=== PATIENT | female | born 1960 | race Caucasian/White ===

== ENCOUNTER 2016-08-14 18:28 | Emergency (ER) | payer BC ==
--- NOTE | 2016-08-14 19:24 | UC ---
Neck Pain HPI - HPI Summary HPI Summary: granddaughter hit her chin hyperextending her neck a few hours a go has tight muscle pain across the upper back and shoulders - History of Current Complaint Stated Complaint: neck pain Time Seen by Provider: 08/14/16 19:05 Hx Obtained From: Patient ?: No Onset/Duration Of Injury/Symptoms: Hours Mechanism Of Injury: Blunt Trauma Timing: Constant Onset/Duration: Sudden Onset, Lasting Hours, Still Present Severity: Mild Pain Intensity: 4 - no bone tenderness all muscular Pain Scale Used: 0-10 Numeric Location: Discrete At: - muscles in upper back Character: Aching, Stiff, Spasmotic Aggravating Factors: Nothing Alleviating Factors: Nothing Associated Signs & Symptoms: Positive: Negative Related History: Previous Neck Injury - 13 years ago muscular injury - Allergies/Home Medications Allergies/Adverse Reactions: Allergies Allergy/AdvReac Type Severity Reaction Status Date / Time Adhesive Tape Allergy Rash Verified 05/12/14 11:40 Latex Allergy Rash Verified 05/12/14 11:40 PMH/Surg Hx/FS Hx/Imm Hx Previously Healthy: No Cardiovascular History Of: Denies: Cardiac Disorders Psychological History Of: Reports: Anxiety - PRN XANAX - Surgical History Surgical History: Yes Surgery Procedure, Year, and Place: DENTAL SURGERY- 1 MONTH AGO. [id number]. HYSTERECTOMY. LEFT LABRUM REPAIR AND ROTATOR CUFF REPAIR-5 YEARS AGO - Family History Known Family History: Positive: None - Social History Occupation: Employed Full-time Lives: With Family Alcohol Use: Occasionally Substance Use Type: None Smoking Status (MU): Light Every Day Tobacco Smoker Amount Used/How Often: SOCIALLY When Did the Patient Quit Smoking/Using Tobacco: 2013 Review Of Systems Constitutional: Positive: Negative Skin: Positive: Negative Eyes: Positive: Negative ENT: Positive: Negative Respiratory: Positive: Negative Cardiovascular: Positive: Negative Gastrointestinal: Positive: Negative Genitourinary: Positive: Negative Musculoskeletal: Positive: Myalgia - upper back Neurological: Positive: Negative Psychological: Positive: Negative All Other Systems Reviewed And Are Negative: Yes Physical Exam Triage Information Reviewed: Yes Appearance: Well-Appearing, No Pain Distress, Well-Nourished Vital Signs Reviewed: Yes Eye Exam: Normal Eyes: Positive: Conjunctiva Clear ENT Exam: Normal ENT: Positive: Normal ENT inspection, Pharynx normal, TMs normal. Negative: Nasal congestion, Nasal drainage, Tonsillar swelling, Tonsillar exudate, Trismus , Muffled/hoarse voice Dental Exam: Normal Neck exam: Normal Neck: Positive: Supple, Nontender, No Lymphadenopathy Respiratory Exam: Normal Respiratory: Positive: Chest non-tender, Lungs clear, Normal breath sounds, No respiratory distress, No accessory muscle use Cardiovascular Exam: Normal Cardiovascular: Positive: RRR, No Murmur, Pulses Normal, Brisk Capillary Refill Musculoskeletal Exam: Normal Musculoskeletal: Positive: Strength Intact, ROM Intact, No Edema Neurological Exam: Normal Neurological: Positive: Alert, Muscle Tone Normal Psychological Exam: Normal Psychological: Positive: Normal Response To Family Skin Exam: Normal Neck Pain Course/Dx - Course Course Of Treatment: muscle relaxers, antinflammotories, soft collar for a couple of hours a day for the next 2-3 days, follow with pcp - Differential Dx/Diagnosis Differential Dx/HQI/PQRI: Arthritis, Sprain, Strain Provider Diagnoses: Cervical strain Discharge - Discharge Plan Condition: Stable Disposition: HOME Prescriptions: Cyclobenzaprine TAB* [Flexeril TAB*] 10 mg PO TID PRN #15 tab PRN Reason: muscle pain and stiffness Ibuprofen TAB* [Motrin TAB* 600 MG] 600 mg PO Q6H PRN #30 tab PRN Reason: Pain Patient Education Materials: Soft Cervical Collar (ED), Cervical Sprain (ED), Acute Neck Pain (ED) Referrals: Lesa Villar MD [Primary Care Provider] - 5 Days
[2016-08-14 19:50] VITALS: BP 121/60
== END 2016-08-14 19:50 | disposition home or self-care (01) ==
LOC: UCCORT 18:28
DX: S16.1XXA Strain of muscle, fascia and tendon at neck level, initial encounter (principal); F41.9 Anxiety disorder, unspecified; F17.210 Nicotine dependence, cigarettes, uncomplicated; W22.8XXA Striking against or struck by other objects, initial encounter; Y92.9 Unspecified place or not applicable
CPT/HCPCS: 99213; G0463

== ENCOUNTER 2016-08-29 09:35 | Emergency (ER) | payer BC ==
[2016-08-29 10:37] VITALS: BP 136/77
--- NOTE | 2016-08-29 10:58 | UC ---
Upper Extremity HPI - HPI Summary HPI Summary: Patient injured her right hand. SILVIA was hyperflexion and was dragged across a surface. it happened 3 days ago. she has been having sever pain to even light touch. mild swelling in the dorsum of the hand, pain with some movement, most pain is from touch - History of Current Complaint Chief Complaint: UCUpperExtremity Stated Complaint: RT HAND PAIN-PREV.INJURY Time Seen by Provider: 08/29/16 10:37 Hx Obtained From: Patient Onset/Duration: Sudden Onset, Lasting Days Severity Initially: Severe Severity Currently: Severe Location Of Pain: Is Diffuse - right hand and wrist Character: Aching, Burning Aggravating Factor(s): Movement - and touch Alleviating Factor(s): Nothing Associated Signs And Symptoms: Positive: Negative - Risk Factors Non-Orthopedic Risk Factor: Negative - Allergies/Home Medications Allergies/Adverse Reactions: Allergies Allergy/AdvReac Type Severity Reaction Status Date / Time Adhesive Tape Allergy Rash Verified 08/29/16 10:21 Latex Allergy Rash Verified 08/29/16 10:21 PMH/Surg Hx/FS Hx/Imm Hx Previously Healthy: Yes Cardiovascular History Of: Denies: Cardiac Disorders Psychological History Of: Reports: Anxiety - PRN XANAX - Surgical History Surgical History: Yes Surgery Procedure, Year, and Place: DENTAL SURGERY- 1 MONTH AGO. [id number]. HYSTERECTOMY. LEFT LABRUM REPAIR AND ROTATOR CUFF REPAIR-5 YEARS AGO - Family History Known Family History: Positive: None Negative: Cardiac Disease, Hypertension - Social History Alcohol Use: Occasionally Substance Use Type: None Smoking Status (MU): Former Smoker Amount Used/How Often: SOCIALLY When Did the Patient Quit Smoking/Using Tobacco: 2013 Review of Systems Skin: Negative Eyes: Negative ENT: Negative Respiratory: Negative Cardiovascular: Negative Gastrointestinal: Negative Genitourinary: Negative Motor: Negative Musculoskeletal: Arthralgia, Edema - mild, Myalgia Neurological: Paresthesia Psychological: Negative All Other Systems Reviewed And Are Negative: Yes Physical Exam Triage Information Reviewed: Yes Appearance: Well-Appearing, Well-Nourished, Pain Distress Vital Signs: Initial Vital Signs Temp 98.6 F 08/29/16 10:12 Pulse 66 08/29/16 10:12 Resp 18 08/29/16 10:12 BP 136/77 08/29/16 10:12 Vital Signs Reviewed: Yes Eye Exam: Normal Eyes: Positive: Conjunctiva Clear ENT Exam: Normal ENT: Positive: Normal ENT inspection, Hearing grossly normal, Pharynx normal, TMs normal Dental Exam: Normal Neck exam: Normal Neck: Positive: Supple, Nontender, No Lymphadenopathy Respiratory Exam: Normal Respiratory: Positive: Chest non-tender, Lungs clear, Normal breath sounds Cardiovascular Exam: Normal Cardiovascular: Positive: RRR, No Murmur, Pulses Normal Abdominal Exam: Normal Abdomen Description: Positive: Nontender, No Organomegaly, Soft Bowel Sounds: Positive: Present Musculoskeletal Exam: Normal Musculoskeletal: Positive: Strength Intact, ROM Intact, No Edema, Other: - severely sensitive to light touch, movement does not bother except in extremems of ROM. Psychological Exam: Normal Skin Exam: Normal Upper Extremity Course/Dx - Course Course Of Treatment: hx obtained, exam performed, meds reviewed I stop consulted. xray obtained and is negative, treated for nerve stretch injury. spint applied - Differential Dx/Diagnosis Differential Diagnosis/HQI/PQRI: Bursitis, Contusion, Strain, Sprain Provider Diagnoses: right arem nerve injury. right wrist pain Discharge - Discharge Plan Condition: Stable Disposition: HOME Prescriptions: Gabapentin CAP(*) [Neurontin 100 mg CAP(*)] 100 mg PO TID #90 cap Lidocaine PATCH 5%* [Lidoderm 5% Patch*] 1 patch TRANSDERM DAILY PRN #10 patch PRN Reason: Pain Patient Education Materials: Peripheral Neuropathy (ED) Additional Instructions: Use the splint to rest the wrist. Start the medication and use as directed. Follow up with any increase in pain or dysfunction. I recommend follow up in 1 month if still experiencing pain at that time.
--- NOTE | 2016-08-29 11:19 | RAD ---
HISTORY: Hyperflexion injury, right wrist COMPARISONS: October 31, 2015 VIEWS: 3, Frontal, lateral, and oblique views of the right wrist and distal forearm FINDINGS: BONE DENSITY: Normal. BONES: There is no displaced fracture. JOINTS: There is no arthropathy. ALIGNMENT: There is no dislocation. SOFT TISSUES: Unremarkable. OTHER FINDINGS: None. IMPRESSION: NO ACUTE OSSEOUS INJURY. IF SYMPTOMS PERSIST, RECOMMEND REPEAT IMAGING.
== END 2016-08-29 11:41 | disposition home or self-care (01) ==
LOC: UCCORT 09:35
DX: S54.91XA Injury of unspecified nerve at forearm level, right arm, initial encounter (principal); M25.531 Pain in right wrist; F41.9 Anxiety disorder, unspecified; X58.XXXA Exposure to other specified factors, initial encounter; Y92.9 Unspecified place or not applicable; Z87.891 Personal history of nicotine dependence
CPT/HCPCS: 99212; G0463

== ENCOUNTER 2016-12-17 15:47 | Emergency (ER) | payer BC ==
[2016-12-17 16:31] VITALS: BP 129/55
--- NOTE | 2016-12-17 16:36 | UC ---
Hand/Wrist HPI - HPI Summary HPI Summary: The patient comes in today for: 1. Right index finger pain: Onset: 5 days. Palliative/provocative: Nothing makes it better or worse. Quality: Burning at times. Region: Right index Severity: 0/10 at rest. Time: Comes and goes depending on activity. Associated symptoms: She states that there is a swelling of the finger. Previous joint problems: NOne. * - History Of Current Complaint Chief Complaint: UCUpperExtremity Stated Complaint: RT HAND INDEX FINGER PAIN Time Seen by Provider: 12/17/16 16:25 Hx Obtained From: Patient Hx Last Menstrual Period: Menopause. ?: No - Allergies/Home Medications Allergies/Adverse Reactions: Allergies Allergy/AdvReac Type Severity Reaction Status Date / Time Adhesive Tape Allergy Rash Verified 12/17/16 16:24 Latex Allergy Rash Verified 12/17/16 16:24 Home Medications: Home Medications Ibuprofen TAB* [Motrin TAB* 600 MG] 400 mg PO Q6H PRN 12/17/16 [History Confirmed 12/17/16] PMH/Surg Hx/FS Hx/Imm Hx Previously Healthy: No - Menopause Psychological History: Anxiety - Surgical History Surgical History: Yes Surgery Procedure, Year, and Place: DENTAL SURGERY- 1 MONTH AGO. [id number]. HYSTERECTOMY. LEFT LABRUM REPAIR AND ROTATOR CUFF REPAIR-5 YEARS AGO - Family History Known Family History: Negative: Cardiac Disease, Hypertension, Diabetes - Social History Occupation: Employed Full-time Alcohol Use: None Substance Use Type: None Smoking Status (MU): Never Smoked Tobacco Amount Used/How Often: SOCIALLY When Did the Patient Quit Smoking/Using Tobacco: 2013 Review of Systems Constitutional: Negative Skin: Negative Eyes: Negative ENT: Negative Respiratory: Negative Cardiovascular: Negative Musculoskeletal: Arthralgia All Other Systems Reviewed And Are Negative: Yes Physical Exam Triage Information Reviewed: Yes Appearance: Well-Appearing, No Pain Distress, Well-Nourished Vital Signs: Initial Vital Signs Temp 98.6 F 12/17/16 16:26 Pulse 61 12/17/16 16:26 Resp 16 12/17/16 16:26 BP 129/55 12/17/16 16:26 Pulse Ox 100 12/17/16 16:26 Vital Signs Reviewed: Yes Eyes: Positive: Conjunctiva Clear. Negative: Discharge ENT: Positive: Hearing grossly normal. Negative: Pharyngeal erythema, Nasal congestion, Nasal drainage, TM bulging, TM dull, TM red, Tonsillar swelling, Tonsillar exudate Neck: Positive: Supple, Nontender, No Lymphadenopathy. Negative: Nuchal Rigidity Respiratory: Positive: Chest non-tender, Lungs clear, No respiratory distress, No accessory muscle use. Negative: Rhonchi, Wheezing Cardiovascular: Positive: RRR, No Murmur Abdomen Description: Positive: Nontender, No Organomegaly, Soft. Negative: CVA Tenderness (L), Distended, Guarding Musculoskeletal: Positive: Strength Intact, ROM Intact, No Edema, Other: - The right index finger has slight synovial thickening. There is full range of motion. Neurological: Positive: Alert, Muscle Tone Normal Psychological: Positive: Age Appropriate Behavior, Consolable Skin: Negative: rashes, breakdown Diagnostics - Radiology No standard instances Xray Interpretation: Positive (See Comments) - IMPRESSION: 1. Nonspecific mild distal soft tissue swelling. 2. Negative for fracture. 3. Mild osteoarthritis. Radiology Interpretation Completed By: Radiologist Hand/Wrist Course/Dx - Course Course Of Treatment: While waiting on the radiologist read (he started reading it when I was free from seeing other patients and ready to see her), another patient was seen (history) and when done, the patient was gone. - Differential Dx/Diagnosis Differential Diagnosis/HQI/PQRI: Sprain, Strain Provider Diagnoses: Osteoarthritis of the right index finger (DIP) joint. Discharge - Discharge Plan Condition: Stable Disposition: HOME Patient Education Materials: Osteoarthritis (ED) Referrals: Lesa Villar MD [Primary Care Provider] - 1 Week (Please see your primary care provider 1-2 weeks after taking bzwq-[id number]-gbdctac medications (Aleve) as needed for finger pain. If you get worse, please be seen sooner.)
--- NOTE | 2016-12-17 17:31 | RAD ---
Indication: Pain at the tip of the RIGHT second finger. Swelling and decreased range of motion. No reported injury. Comparison: No relevant prior exams available on the [facility] PACS for comparison. Technique: 3 views RIGHT second finger. Report: Minimal interphalangeal joint osteophytosis. Negative for significant joint space narrowing. Negative for fracture or malalignment. Mild distal soft tissue swelling. IMPRESSION: 1. Nonspecific mild distal soft tissue swelling. 2. Negative for fracture. 3. Mild osteoarthritis.
== END 2016-12-17 17:50 | disposition home or self-care (01) ==
LOC: UCCORT 15:47
DX: M18.11 Unilateral primary osteoarthritis of first carpometacarpal joint, right hand (principal); Z87.891 Personal history of nicotine dependence
CPT/HCPCS: 73140; 99211; G0463

== ENCOUNTER 2018-08-10 10:16 | Emergency (ER) | payer BC ==
[2018-08-10 11:25] VITALS: BP 126/35
[2018-08-10 11:29] LABS: Influenza A Molecular POSITIVE (Negative)
--- NOTE | 2018-08-10 11:57 | UC ---
Respiratory Complaint HPI - HPI Summary HPI Summary: cough x 4 days nasal congestion , pnd, fever, chills body aches , headaches , no sob , no chest pain - History of Current Complaint Chief Complaint: UCGeneralIllness Stated Complaint: COUGH,DICKINSON,BODYACHES Time Seen by Provider: 08/10/18 11:22 Hx Obtained From: Patient Hx Last Menstrual Period: Menopause. Onset/Duration: Gradual Onset, Lasting Days - 10, Still Present Timing: Constant Severity Initially: Moderate Severity Currently: Moderate Pain Intensity: 9 Pain Scale Used: 0-10 Numeric Character: Cough: Nonproductive Aggravating Factors: Exertion, Deep Breaths Associated Signs And Symptoms: Positive: Wheezing, URI, Nasal Congestion. Negative: Calf Pain, Calf Swelling - Allergies/Home Medications Allergies/Adverse Reactions: Allergies Allergy/AdvReac Type Severity Reaction Status Date / Time Adhesive Tape Allergy Rash Verified 12/17/16 16:24 latex Allergy Rash Verified 08/10/18 11:17 Home Medications: Home Medications DULoxetine DR CAP* [Cymbalta CAP*] 60 mg PO BEDTIME 08/10/18 [History Confirmed 08/10/18] Ibuprofen TAB* [Advil TAB*] 400 mg PO Q6H PRN 08/10/18 [History Confirmed ] guaiFENesin ER TAB [Mucinex*] 600 mg PO BID 08/10/18 [History Confirmed 08/10/18 ] PMH/Surg Hx/FS Hx/Imm Hx Previously Healthy: Yes - Surgical History Surgical History: Yes Surgery Procedure, Year, and Place: DENTAL SURGERY- 1 MONTH AGO. [id number]. HYSTERECTOMY. LEFT LABRUM REPAIR AND ROTATOR CUFF REPAIR-5 YEARS AGO. [place]. Deviated septum repair - Family History Known Family History: Positive: None Negative: Cardiac Disease, Hypertension, Diabetes - Social History Alcohol Use: Occasionally Substance Use Type: None Smoking Status (MU): Former Smoker Amount Used/How Often: SOCIALLY When Did the Patient Quit Smoking/Using Tobacco: 2012 Review of Systems All Other Systems Reviewed And Are Negative: Yes Constitutional: Positive: Fever, Chills, Fatigue Skin: Positive: Negative Eyes: Positive: Negative ENT: Positive: Sore Throat, Nasal Discharge Respiratory: Positive: Cough Cardiovascular: Positive: Chest Pain Genitourinary: Negative: Frequency, Urgency, Vaginal/Penile Burning, Vaginal/ Penile Itching Is Patient Immunocompromised?: No Physical Exam Triage Information Reviewed: Yes Appearance: Well-Appearing, No Pain Distress, Well-Nourished Vital Signs: Initial Vital Signs Temp 100.1 F 08/10/18 11:21 Pulse 97 08/10/18 11:21 Resp 16 08/10/18 11:21 BP 126/35 08/10/18 11:21 Pulse Ox 100 08/10/18 11:21 Vital Signs Reviewed: Yes Eye Exam: Normal Eyes: Positive: Conjunctiva Clear ENT: Positive: Normal ENT inspection, Hearing grossly normal, Pharynx normal Neck: Positive: Supple, Nontender Respiratory: Positive: Chest non-tender, Lungs clear, Normal breath sounds Cardiovascular: Positive: RRR, No Murmur, Pulses Normal Abdominal Exam: Normal Abdomen Description: Positive: Nontender, Soft Bowel Sounds: Positive: Present Musculoskeletal Exam: Normal Neurological: Positive: Alert Skin Exam: Normal UC Diagnostic Evaluation - Laboratory O2 Sat by Pulse Oximetry: 100 Respiratory Course/Dx - Differential Dx/Diagnosis Provider Diagnosis: Influenza Discharge - Sign-Out/Discharge Documenting (check all that apply): Patient Departure All imaging exams completed and their final reports reviewed: No Studies - Discharge Plan Condition: Stable Disposition: HOME Patient Education Materials: Influenza (ED) Referrals: Lesa Villar MD [Primary Care Provider] - If Needed - Billing Disposition and Condition Condition: STABLE Disposition: Home
== END 2018-08-10 11:51 | disposition home or self-care (01) ==
LOC: UCCORT 10:16
DX: J11.1 Influenza due to unidentified influenza virus with other respiratory manifestations (principal); R06.2 Wheezing; Z87.891 Personal history of nicotine dependence; Z91.09 Other allergy status, other than to drugs and biological substances; Z91.040 Latex allergy status
CPT/HCPCS: 99211; G0463

== ENCOUNTER 2019-04-10 11:27 | Emergency (ER) | payer BC ==
[2019-04-10 12:09] VITALS: BP 138/62
--- NOTE | 2019-04-10 12:41 | UC ---
Complaint Female HPI - HPI Summary HPI Summary: 59-year-old female presents with one-week history of dysuria, frequency, and urgency. Patient states that she has had similar issues in the past and was using Premarin cream but took herself off of it a little over a month ago. Denies fever, chills, abdominal pain, nausea, vomiting, back or flank pain, hematuria, vaginal discharge, or abnormal bleeding. - History Of Current Complaint Chief Complaint: UCGU Stated Complaint: URINARY Time Seen by Provider: 04/10/19 12:10 Hx Obtained From: Patient Hx Last Menstrual Period: Menopause. Pain Intensity: 0 - Allergies/Home Medications Allergies/Adverse Reactions: Allergies Allergy/AdvReac Type Severity Reaction Status Date / Time Adhesive Tape Allergy Rash Verified 04/10/19 12:03 latex Allergy Rash Verified 04/10/19 12:03 PMH/Surg Hx/FS Hx/Imm Hx Previously Healthy: Yes - Surgical History Surgical History: Yes Surgery Procedure, Year, and Place: DENTAL SURGERY- 1 MONTH AGO. [id number]. HYSTERECTOMY. LEFT LABRUM REPAIR AND ROTATOR CUFF REPAIR-5 YEARS AGO. [facility]. Deviated septum repair - Family History Known Family History: Positive: Non-Contributory - Social History Occupation: Employed Full-time Lives: Alone Alcohol Use: Occasionally Substance Use Type: None Smoking Status (MU): Former Smoker Amount Used/How Often: SOCIALLY When Did the Patient Quit Smoking/Using Tobacco: 2013 Review of Systems All Other Systems Reviewed And Are Negative: Yes Constitutional: Negative: Fever, Chills Respiratory: Positive: Negative Cardiovascular: Positive: Negative Gastrointestinal: Negative: Abdominal Pain, Vomiting, Nausea Genitourinary: Positive: Dysuria, Frequency, Urgency. Negative: Hematuria, Vaginal/Penile Discharge, Abnormal Bleeding Musculoskeletal: Positive: Negative Neurological: Positive: Negative Is Patient Immunocompromised?: No Physical Exam - Summary Physical Exam Summary: GENERAL APPEARANCE: Well developed, well nourished, alert and cooperative, and appears to be in no acute distress. CARDIAC: Normal S1 and S2. No S3, S4 or murmurs. Rhythm is regular. There is no peripheral edema, cyanosis or pallor. Extremities are warm and well perfused. Capillary refill is less than 2 seconds. Peripheral pulses intact. LUNGS: Clear to auscultation without rales, rhonchi, wheezing or diminished breath sounds. ABDOMEN: Positive bowel sounds. Soft, nondistended, nontender. No guarding or rebound. No masses or hepatosplenomegally. MUSKULOSKELETAL: ROM intact to all extremities. No joint erythema or tenderness. Normal muscular development. Normal gait. No CVA tenderness. SKIN: Skin normal color, texture and turgor with no lesions or eruptions. Triage Information Reviewed: Yes Vital Signs: Initial Vital Signs Temp 99.6 F 04/10/19 12:05 Pulse 72 04/10/19 12:05 Resp 15 04/10/19 12:05 BP 138/62 04/10/19 12:05 Pulse Ox 99 04/10/19 12:05 Vital Signs Reviewed: Yes Complaint Female Dx - Course Course Of Treatment: 59-year-old female presents with one-week history of dysuria, frequency, and urgency. Patient states that she has had similar issues in the past and was using Premarin cream but took herself off of it a little over a month ago. Denies fever, chills, abdominal pain, nausea, vomiting, back or flank pain, hematuria, vaginal discharge, or abnormal bleeding. Afebrile. Vital signs stable. Patient's exam was overall unremarkable. [id number] urinalysis was within normal limits. Reviewed results with the patient. We will send a urine culture which is pending. I discussed with the patient that with a normal urinalysis her symptoms were likely from the vulvovaginal atrophy and she should follow with her primary care provider to discuss restarting her Premarin cream. Recommending that she follow up with her primary care provider in 3-5 days especially if symptoms persist. Anticipatory guidance and warning symptoms were reviewed with the patient. Verbalizes understanding and agrees with plan of care. - Differential Dx/Diagnosis Differential Diagnosis/HQI/PQRI: Urinary Tract Infection, Other - Vulvovaginal atrophy, vulvovaginitis Provider Diagnosis: Dysuria Discharge ED - Sign-Out/Discharge Documenting (check all that apply): Patient Departure All imaging exams completed and their final reports reviewed: No Studies - Discharge Plan Condition: Stable Disposition: HOME Patient Education Materials: Dysuria (ED) Referrals: Lesa Villar MD [Primary Care Provider] - 3 Days Additional Instructions: Your urine test in the clinic today showed no evidence of a urinary tract infection. We will send a urine culture today to see if any bacteria grow out. If so, we will start you on an antibiotic that is appropriate to treat the infection. It will take up to 48-72 hours to get these results. Drink plenty of fluids. To help prevent urinary tract infections: 1) Be sure to wipe from front to back. 2) Urinate immediately after any sexual intercourse. 3) Avoid taking bubble baths. Follow up with your primary care provider in 3-5 days if symptoms persist. Seek immediate medical attention in the emergency room if you develop fever greater than 100.5 F, have severe abdominal pain, persistent vomiting, or any worsening of symptoms. - Billing Disposition and Condition Condition: STABLE Disposition: Home
== END 2019-04-10 12:55 | disposition home or self-care (01) ==
LOC: UCCORT 11:27
DX: R30.0 Dysuria (principal); Z87.891 Personal history of nicotine dependence
CPT/HCPCS: 81003; 87086; 99211; G0463